=== PATIENT | male | born 1995 | race Caucasian/White ===

== ENCOUNTER 2023-05-30 10:54 | Emergency (ER) | payer SELFPAY ==
[2023-05-30 11:00] VITALS: BP 127/76; PULSE 87; RESP 16; TEMP 36.7; O2SAT 97; BMI 27.0
--- NOTE | 2023-05-30 11:21 | XR_ITS ---
The [address] [address] Patient Name: LUISA ORANTES MRN: [id number] date: 1995 Sex: M Assigned Patient Location: ER Current Patient Location: ER Accession/Order Number: [id number] Exam Date: 05/30/2023 11:30 Report Date: 05/30/2023 11:51 At the request of: JOEL HOGAN Procedure: XR cervical spine 2-3V EXAMINATION: XR cervical spine 2-3V, [id number] HISTORY: neck pain left cervical radiculopathy COMPARISON: None. FINDINGS: No acute fracture or suspicious osseous lesion. Mild apex rightward curvature of the cervical spine centered at C6. No significant spondylolisthesis. Mild posterior osteophytosis at C4-C5. No significant osseous degenerative changes. Soft tissues are within normal limits. XR/XR cervical spine 2-3V IMPRESSION: 1. No acute osseous abnormality. 2. Mild apex rightward curvature of the cervical spine not meeting image criteria for scoliosis. 3. Mild spondylosis at C4-C5. Electronically authenticated by: REESE APONTE Date: 05/30/2023 11:51
--- NOTE | 2023-05-30 11:22 | ED_ITS ---
HPI - Extremity Problem General Chief complaint: Extremity Problem, Nontraumatic Stated complaint: UPPER EXTREMITY PAIN LT ARM Time Seen by Provider: 05/30/23 11:07 Source: patient Mode of arrival: walk-in History of Present Illness HPI Narrative: patient is a 28-year-old male presents to the Emergency Room with concerns of numbness and tingling and pain in the left arm. Patient states he had a uneventful day yesterday, noticed onset of discomfort last night around 8 PM. States he has history of arthritis in his neck, he is adopted and does not know any pertinent family history. Patient states he noticed discomfort going from his neck over her shoulder down to his mid distal forearm. He denies chest pain or shortness of breath, noted his heart rate was elevated last night, but symptoms were not severe and he was able to sleep. Patient notes some weakness in his left hand today also accompanied with discomfort. Generalized tingling in the fingers diffuse. Patient denies any recent illness or fever. Patient denies any visual disturbance or inclination. He is right-hand dominant Location: Reports left and upper extremity Related Data Allergies Allergy/AdvReac Type Severity Reaction Status Date / Time No Known Drug Allergies Allergy Verified 05/30/23 11:03 Review of Systems ROS Constitutional Denies: fever, chills or change in weight Eyes Denies: change in vision Ears, nose, mouth, and throat Reports: neck pain; Denies: throat pain, throat swelling or difficulty swallowing Cardiovascular Reports: palpitations (last night very mild); Denies: chest pain, edema or shortness of breath when lying down Respiratory Denies: shortness of breath, cough or wheezing Gastrointestinal Denies: abdominal pain, nausea, vomiting, heartburn or difficulty swallowing Genitourinary Denies: painful urination Musculoskeletal Reports: neck pain and extremity pain; Denies: back pain or joint pain Integumentary/Breast Denies: rash, itching or skin pain Neurological Reports: numbness in extremities and weakness in extremities; Denies: headache, lack of coordination, dizziness, vertigo, confusion or slurred speech Psychiatric Denies: anxiety or panic attacks Endocrine Denies: excessive urination Allergic/Immunologic Denies: hives or throat swelling Exam Narrative Exam Narrative: Nurses note and vital signs reviewed and patient is not hypoxic. General: The patient appears well and in no apparent distress. Patient is resting comfortably on cart.patient calm and comfortable speaking about symptoms. Skin: Warm, dry, no pallor noted. There is no rash noted. Head: Normocephalic, atraumatic, multiple facial piercings noted Eye: Normal conjunctiva, no drainage, EOMI. PERRL Ears, Nose, Mouth, and Throat: oral mucosa is moist. Nares patent. Mouth without vesicles. Ear canals patent. Tm's without Erythema Cardiovascular: Regular Rate and Rhythm Respiratory: Patient is in no distress, no accessory muscle use, lungs are clear to auscultation, no wheezing, rales or rhonchi Back: non-tender, no CVA tenderness bilaterally to percussion.mild. Scapular tenderness on palpation. Positive tenderness to the left trapezium with associated spasm. Full painless range of motion of the neck, negative meningeal signs. GI: Normal bowel sounds, no tenderness to palpation, no masses appreciated. No rebound, guarding, or rigidity noted. Musculoskeletal: The patient has no evidence of calf tenderness, no pitting edema, symmetrical pulses noted bilaterally, patient notes pain in the C5-C6 distribution, no change with motion of his shoulder. 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 His biceps and triceps are five over five. Deltoid is five over five. Wrist extension noted to be 4/5 wrist flexion also 4/5. Patient has negative clonus. Reflexes are 2+ symmetric biceps, triceps and brachial radialis. Neurological: A&O x4, normal speech, negative Romberg's.brisk [id number]. Motors bilateral hands and fingers without difficulty. Psychiatric: Cooperative Constitutional Vital Signs, click to edit/add: Last Vital Signs Temp 98.1 F 05/30/23 11:00 Pulse 87 05/30/23 11:00 Resp 16 05/30/23 11:00 BP 127/76 05/30/23 11:00 Pulse Ox 97 05/30/23 11:00 O2 Del Method Room Air 05/30/23 11:00 Course Vital Signs Vital signs: Vital Signs Temperature 98.1 F 05/30/23 11:00 Pulse Rate 87 05/30/23 11:00 Respiratory Rate 16 05/30/23 11:00 Blood Pressure 127/76 05/30/23 11:00 Pulse Oximetry 97 05/30/23 11:00 Oxygen Delivery Method Room Air 05/30/23 11:00 Temperature 98.1 F 05/30/23 11:00 Pulse Rate 87 05/30/23 11:00 Respiratory Rate 16 05/30/23 11:00 Blood Pressure 127/76 05/30/23 11:00 Pulse Oximetry 97 05/30/23 11:00 Oxygen Delivery Method Room Air 05/30/23 11:00 MDM - Extremity (Nontraumatic) MDM Narrative Medical decision making narrative: patient presents with symptoms concerning for cervical radiculopathy. No significant pain with motion of the left shoulder. Patient has pain constant with tingling in his fingers that drapes over the left arm and a C5/C6 dermatome. Patient notes global tingling and office fingers. No evidence of wristdrop. Patient noted symptoms started at 8 PM last night, worse in the morning with shooting pains described as lightning bolts. Patient states last night he was monitoring his heart rate and noticed elevation in the 130s at times, but that has normalized. He denies any palpitations currently. Patient states he has known arthritis in his neck but has never experienced these symptoms. Patient lives locally in [place], adopted does not know his family history does not see a family doctor on a regular basis. Patient agreeable to prednisone, we will start with a cervical spine x-ray and fingerstick blood sugar. EKG given her concerns of palpitations yesterday. Discussed x-ray findings, discussed prednisone taper. Recommend follow-up to PCP for reevaluation and possible physical therapy referral. He is to return to the Emergency Room if symptoms worsen or new symptoms develop. The patient is to followup with primary care physician in next 2-3 days or to return to the emergency department should any of the signs or symptoms worsen or new symptoms develop. Patient had questions answered. The patient agrees with the following Diagnosis and Treatment plan and the patient will be discharged home. Lab Data Attestation: I reviewed the patient's lab results. Labs: Lab Results 05/30/23 Range/Units 11:40 Sodium 138 (136-145) mmol/L Potassium 3.7 (3.5-5.1) mmol/L Chloride 101 (98-107) mmol/L Carbon Dioxide 26.2 (21.0-32.0) mmol/L Anion Gap 14.5 BUN 11.0 (7.0-18.0) mg/dL Creatinine 1.04 (0.70-1.30) mg/dL Est GFR ( Amer) >60 (>=60) Est GFR (Non-Af Amer) >60 (>=60) BUN/Creatinine Ratio 10.6 Glucose 96 (74-106) mg/dL Calcium 8.5 (8.5-10.1) mg/dL Imaging Data C-spine: Radiologist's impression: Procedure: XR cervical spine 2-3V EXAMINATION: XR cervical spine 2-3V, [id number] HISTORY: neck pain left cervical radiculopathy COMPARISON: None. FINDINGS: No acute fracture or suspicious osseous lesion. Mild apex rightward curvature of the cervical spine centered at C6. No significant spondylolisthesis. Mild posterior osteophytosis at C4-C5. No significant osseous degenerative changes. Soft tissues are within normal limits. IMPRESSION: 1. No acute osseous abnormality. 2. Mild apex rightward curvature of the cervical spine not meeting image criteria for scoliosis. 3. Mild spondylosis at C4-C5. Electronically authenticated by: REESE APONTE Date: 05/30/2023 11:51 ECG Data Attestation ECG: I personally reviewed and interpreted this ECG as follows: Interpretation: EKG interpretation: Emergency Department physician interpretation, 74 sinus rhythm, no ectopy, no ST segment elevation, normal axis. Discharge Plan Discharge Chief Complaint: Extremity Problem, Nontraumatic Clinical Impression: Trapezius muscle spasm, Cervical radiculopathy, acute Patient Disposition: Home, Self-Care Time of Disposition Decision: 12:22 Condition: Good Instructions: Cervical Radiculopathy (ED) Additional Instructions: prescription for prednisone taper given 20 mg two tabs a day for five days then one tab a day for five days. May start presscription tomorrow on 05/31/23. Stand Alone Forms: Portal Instructions Referrals: Cristian Goode MD [Physician] - As soon as possible
--- NOTE | 2023-05-30 11:25 | ECG_ITS ---
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
[2023-05-30] MEDS: PREDNISONE 20 MG TABLET 60 MG PO (11:48)
[2023-05-30 12:13] LABS: Anion Gap 14.5; BUN Creatinine Ratio 10.6; Calcium 8.5 mg/dL (8.5-10.1); Carbon Dioxide 26.2 mmol/L (21.0-32.0); Chloride 101 mmol/L (98-107); Estimated GFR (African America >60 (>=60); Estimated GFR (Non-African Ame >60 (>=60); Glucose 96 mg/dL (74-106); Potassium 3.7 mmol/L (3.5-5.1); Sodium 138 mmol/L (136-145)
== END 2023-05-30 12:40 | disposition home or self-care (01) ==
LOC: ER 05-31 12:35
PROVIDERS: Personal Emergency Response Attendant; Emergency Provider Emergency Medicine Emergency Medical Services
DX: M54.12 Radiculopathy, cervical region (principal); M62.838 Other muscle spasm
CPT/HCPCS: 36415; 72040; 80048; 93005; 99285

== ENCOUNTER 2023-06-17 13:57 | Emergency (ER) | payer SELFPAY ==
[2023-06-17 14:00] VITALS: BP 131/108; PULSE 64; RESP 34; TEMP 36.6; O2SAT 96; BMI 29.9
[2023-06-17] MEDS: LORAZEPAM 2 MG/ML 1 ML VIAL IM (14:16)
--- NOTE | 2023-06-17 14:19 | ED_ITS ---
HPI - General Adult General Chief complaint: Shortness of Breath/Dyspnea Stated complaint: SEIZURE SYMPTOMS Time Seen by Provider: 06/17/23 14:07 Source: patient Mode of arrival: walk-in History of Present Illness HPI narrative: Patient is a 28-year-old male who is presenting with chief concern/complaint of hyperventilating, and having carpal, pedal spasm and diffuse. Seizures. Patient says that he has no history of anxiety or panic attacks. Patient was brought by a friend to the Emergency Room. Patient stated this started approximately 2 hours ago for unknown reason. Patient woke up and had a fever. Patient has no history of anxiety or panic attacks. Patient's been hyperventilating intermittently for the past 2 hours. Patient states he's had no nausea, vomiting or diarrhea. Patient has no chest pain or shortness of breath, patient is heavily. Patient states he does not feel members. No other acute complaints. No recent traveling, no recent sick contacts. Patient says he has not had this happen to him before. Patient denies any illicit drug use. . All systems are negative except as noted/marked. All systems reviewed and otherwise negative. . Nurses note and vital signs reviewed and patient is not hypoxic. General: The patient appears Mild respiratory distress, hyperventilating, with very obvious pedal spasm, carpal spasm. Patient is resting uncomfortably on cart. Patient is not toxic, lethargic, or listless Skin: Warm, dry, no pallor noted. There is no rash noted. No petechiae, purpura. Multiple tattoos, no secondary signs of infection. Head: Normocephalic, atraumatic Eye: Normal conjunctiva, no drainage, EOMI. PERRL Ears, Nose, Mouth, and Throat: oral mucosa is moist. Nares patent. Mouth without vesicles. Cardiovascular: Regular Rate and Rhythm, no murmur, gallop, rub Respiratory: Patient is in Mild respiratory distress with increased respiratory rate;, no accessory muscle use, lungs are clear to auscultation, no wheezing, rales or rhonchi Back: non-tender, no CVA tenderness bilaterally to percussion. No CT LS midline pain GI: soft, no tenderness to palpation, no masses appreciated. No rebound, guarding, or rigidity noted. No flank pain bilateral, No distention Musculoskeletal: Patient has full range of motion of all of the extremities, no motor, sensory, or focal neurological deficits Neurological: A&O x3, normal speech Psychiatric: Cooperative, Noticeably anxious, probable panic attack, hyperventilating. Related Data Home Medications Medication Instructions Recorded Confirmed prednisone 20 mg tablet 40 mg PO DAILY 05/30/23 05/30/23 Allergies Allergy/AdvReac Type Severity Reaction Status Date / Time No Known Drug Allergies Allergy Verified 05/30/23 11:03 [facility] Social History Smoking status: Current every day smoker Exam Constitutional Vital Signs, click to edit/add: Last Vital Signs Temp 97.8 F 06/17/23 14:00 Pulse 98 H 06/17/23 15:21 Resp 18 06/17/23 15:21 BP 141/81 06/17/23 15:21 Pulse Ox 100 06/17/23 15:21 O2 Del Method Room Air 06/17/23 14:30 Course Vital Signs Vital signs: Vital Signs Temperature 97.8 F 06/17/23 14:00 Pulse Rate 64 06/17/23 14:00 Respiratory Rate 34 H 06/17/23 14:00 Blood Pressure 131/108 H 06/17/23 14:00 Pulse Oximetry 96 06/17/23 14:00 Oxygen Delivery Method Room Air 06/17/23 14:00 Temperature 97.8 F 06/17/23 14:00 Pulse Rate 98 H 06/17/23 15:21 Respiratory Rate 18 06/17/23 15:21 Blood Pressure 141/81 06/17/23 15:21 Pulse Oximetry 100 06/17/23 15:21 Oxygen Delivery Method Room Air 06/17/23 14:30 Medical Decision Making [facility] Narrative Medical decision making narrative: 1410 Patient is given 2 mg of Ativan intramuscular. Patient was placed on a nonrebreather, 0 0 L going into the nonrebreather. Patient will be monitored for one hour, in hopes that the hyperventilation, carpal, pedal spasm and paresthesias will improve. 1540 Patient feels much better at discharge, is not hyperventilating. Patient longer has any type of carpal, pedal spasm. Paresthesias have improved. Patient has never had this episode before, no anxiety panic history, no illicit drugs, no marijuana use. Patient again presented his history like he did when he initially arrived. Unknown reason the cause hyperventilation syndrome, but patient is a significant medical slightly drowsy from the Ativan the feels good. Patient is aware not to go call tonight, no driving vehicles tonight, go home, rest, follow-up with PCP next week and continue normal activity of daily living tomorrow. Discharge Plan Discharge Chief Complaint: Shortness of Breath/Dyspnea Clinical Impression: Acute hyperventilation syndrome Patient Disposition: Home, Self-Care Prescriptions / Home Meds: No Action prednisone 20 mg tablet 40 mg PO DAILY Rx Instructions: days 11-21 of therapy Instructions: Hyperventilation (ED) Additional Instructions: If your hyperventilation returns, symptoms returned in the future, follow-up with PCP for possible medication for rescue symptoms or if you need any daily anxiety/rash/depression medication. Stand Alone Forms: Portal Instructions Referrals: Physician,Non-Staff, MD [Primary Care Provider] - 1 week
[2023-06-17 14:30] VITALS: O2SAT 100
[2023-06-17 14:41] VITALS: BP 139/98; PULSE 113; RESP 22; O2SAT 100
[2023-06-17 15:21] VITALS: BP 141/81; PULSE 98; RESP 18; O2SAT 100
== END 2023-06-17 15:56 | disposition home or self-care (01) ==
PROVIDERS: Emergency Provider Emergency Medicine
DX: F45.8 Other somatoform disorders (principal); F17.210 Nicotine dependence, cigarettes, uncomplicated
CPT/HCPCS: 99283

== ENCOUNTER 2023-09-26 15:21 | Emergency (ER) | payer SELFPAY ==
[2023-09-26 15:25] VITALS: BP 105/84; PULSE 106; RESP 18; TEMP 36.6; O2SAT 99; BMI 25.5
--- NOTE | 2023-09-26 15:31 | XR_ITS ---
The [address] [address] Patient Name: LUISA ORANTES MRN: [id number] date: 1995 Sex: M Assigned Patient Location: ER Current Patient Location: ED.MAIN Accession/Order Number: [id number] Exam Date: 09/26/2023 15:45 Report Date: 09/26/2023 16:13 At the request of: COURTNEY RICHARDSON Procedure: XR forearm LT 2V EXAM: XR forearm LT 2V, XR wrist LT 2V HISTORY: injury COMPARISON: None. TECHNIQUE: AP and lateral views of the left wrist. AP and lateral views of the left forearm. FINDINGS: There is apparent flexion contracture at the wrist with compromise in visualization of the bones of the carpus. The radius and ulna show normal architecture. Articulations at the elbow and wrist are intact. Soft tissues are unremarkable. XR/XR forearm LT 2V IMPRESSION: No evidence of acute fracture of the radius or ulna. Limited visualization of the bones of the carpus. If there is significant clinical suspicion for acute fracture, further evaluation of the wrist by CT is recommended. Electronically authenticated by: Liliana PICHARDO Date: 09/26/2023 16:13
--- NOTE | 2023-09-26 15:31 | XR_ITS ---
The [address] [address] Patient Name: LUISA ORANTES MRN: [id number] date: 1995 Sex: M Assigned Patient Location: ER Current Patient Location: ED.MAIN Accession/Order Number: [id number] Exam Date: 09/26/2023 15:45 Report Date: 09/26/2023 16:13 At the request of: COURTNEY RICHARDSON Procedure: XR wrist LT 2V EXAM: XR forearm LT 2V, XR wrist LT 2V HISTORY: injury COMPARISON: None. TECHNIQUE: AP and lateral views of the left wrist. AP and lateral views of the left forearm. FINDINGS: There is apparent flexion contracture at the wrist with compromise in visualization of the bones of the carpus. The radius and ulna show normal architecture. Articulations at the elbow and wrist are intact. Soft tissues are unremarkable. XR/XR wrist LT 2V IMPRESSION: No evidence of acute fracture of the radius or ulna. Limited visualization of the bones of the carpus. If there is significant clinical suspicion for acute fracture, further evaluation of the wrist by CT is recommended. Electronically authenticated by: Liliana PICHARDO Date: 09/26/2023 16:13
--- NOTE | 2023-09-26 15:37 | PC.NURSE ---
Left wrist has deformity, no break in skin, skin to left hand and arm pink and warm and pulses present. Ice pack applied to left wrist.
--- NOTE | 2023-09-26 15:39 | ED.UPPEXIN1 ---
HPI - Extremity Injury (Upper) General Chief Complaint: Extremity Injury, Upper Stated Complaint: Upper Injury Left arm Flu Time Seen by Provider: 09/26/23 15:38 Source: patient Mode of arrival: walk-in Limitations: no limitations History of Present Illness HPI narrative: patient here with an injury to his left wrist and hand area. He states approximately 6 AM this morning he passed out. He's been sick last several days with flu with vomiting and diarrhea and just got lightheaded and fainted. For uncertain reasons he has an obvious deformity and pain in his left wrist. He didn't come to the emergency room until 3:30 this afternoon. He denies any drug or alcohol use. He has no other injury to his elbow shoulder or trunk torso or extremities. No head or neck discomfort. Related Data Home Medications Medication Instructions Recorded Confirmed prednisone 20 mg tablet 40 mg PO DAILY 05/30/23 09/26/23 Allergies Allergy/AdvReac Type Severity Reaction Status Date / Time No Known Drug Allergies Allergy Verified 05/30/23 11:03 [facility] Social History Smoking status: Former smoker Exam Narrative Exam Narrative: the patient is holding his left wrist in a position of flexion. The neurovascular integrity is normal. There is no evidence of warmth or erythema or cellulitis. He really doesn't want to extend the wrist whatsoever. Rest the forearm elbow area and digits is normal. Constitutional Vital Signs, click to edit/add: Last Vital Signs Temp 97.9 F 09/26/23 15:25 Pulse 86 09/26/23 17:20 Resp 20 09/26/23 17:20 BP 123/80 09/26/23 17:20 Pulse Ox 99 09/26/23 17:20 O2 Del Method Room Air 09/26/23 15:25 Course Vital Signs Vital signs: Vital Signs Temperature 97.9 F 09/26/23 15:25 Pulse Rate 106 H 09/26/23 15:25 Respiratory Rate 18 09/26/23 15:25 Blood Pressure 105/84 09/26/23 15:25 Pulse Oximetry 99 09/26/23 15:25 Oxygen Delivery Method Room Air 09/26/23 15:25 Temperature 97.9 F 09/26/23 15:25 Pulse Rate 86 09/26/23 17:20 Respiratory Rate 20 09/26/23 17:20 Blood Pressure 123/80 09/26/23 17:20 Pulse Oximetry 99 09/26/23 17:20 Oxygen Delivery Method Room Air 09/26/23 15:25 MDM - Extremity Injury (Upper) MDM Narrative Medical decision making narrative: conventional x-rays did not show any obvious fracture but I thought there may be a dislocation. These images were shared with the on-call orthopedic surgeon and he suggested a CT scan for further clarity CT scan did not show any bony abnormality or dislocation. There was a substantial size cyst in the area.when I reexxamined the patient I was able to extend the wrist and palpates this large ganglion. He was advised to follow-up with orthopedic doctor and will be given the name of the physician Discharge Plan Discharge Chief Complaint: Extremity Injury, Upper Clinical Impression: Ganglion cyst of dorsum of left wrist Patient Disposition: Home, Self-Care Time of Disposition Decision: 17:27 Prescriptions / Home Meds: No Action prednisone 20 mg tablet 40 mg PO DAILY Hold Instructions: dc Rx Instructions: days 11-21 of therapy Additional Instructions: follow-up with orthopedist next week Stand Alone Forms: Portal Instructions Referrals: Physician,Non-Staff, MD [Primary Care Provider] - 1 week
[2023-09-26] MEDS: 0.9 % SODIUM CHLORIDE 1,000 ML 999 ML IV (16:05)
--- NOTE | 2023-09-26 16:23 | CT_ITS ---
The [address] [address] Patient Name: LUISA ORANTES MRN: [id number] date: 1995 Sex: M Assigned Patient Location: ED.MAIN Current Patient Location: ED.MAIN Accession/Order Number: [id number] Exam Date: 09/26/2023 16:30 Report Date: 09/26/2023 17:09 At the request of: COURTNEY RICHARDSON Procedure: CT wrist LT wo con EXAM: CT wrist LT wo con HISTORY: The patient is a 28-year-old male, trauma COMPARISON: Radiographs from 3:53 PM. TECHNIQUE: CT images were obtained through the left wrist without intravenous contrast and reformatted in 2 dimensions. Dose reduction techniques were achieved by using automated exposure control and/or adjustment of mA and/or kV according to patient size and/or use of iterative reconstruction technique. FINDINGS: The soft tissue images demonstrate a dorsal wrist ganglion measuring 2.7 cm in length on sagittal image 22 and 2.5 cm in width on axial image 57. This appears to be a simple ganglion cyst. The soft tissue images demonstrate no other abnormal fluid collections or soft tissue masses on this non-contrast enhanced study. The bone images demonstrate no fractures or cortical discontinuities within or around the left wrist. The wrist is held in partial flexion, presumably related to the presence of the dorsal ganglion. Allowing for this, the joints are anatomically aligned. CT/CT wrist LT wo con IMPRESSION: Dorsal wrist ganglion. Electronically authenticated by: MAHSA SMALLS Date: 09/26/2023 17:09
[2023-09-26 17:20] VITALS: BP 123/80; PULSE 86; RESP 20; O2SAT 99
== END 2023-09-26 17:46 | disposition home or self-care (01) ==
PROVIDERS: Emergency Provider Emergency Medicine Emergency Medical Services
DX: M67.432 Ganglion, left wrist (principal); Z87.891 Personal history of nicotine dependence
CPT/HCPCS: 73090; 73100; 73200; 96360; 99284